=== PATIENT | male | born 1965 | race Caucasian/White ===

== ENCOUNTER 2025-04-23 02:01 | Day surgery (SDC) | payer BC, SELFPAY ==
[2025-04-22 17:15] VITALS: BP 168/94
[2025-04-22 17:33] LABS: Hematocrit 46.0 % (39.0-52.0); Hemoglobin 16.4 g/dL (13.0-18.0); Mean Corp Hgb Conc. 35.7 g/dL (33.0-37.0); Mean Corpuscular Volume 80.6 fL (80.0-94.0); Nucleated Red Blood Cells % 0 % (-); Platelet Count 230 10^3/uL (130-400); Red Cell Dist. Width 12.1 % (11.5-14.5)
[2025-04-22 18:03] LABS: ALT (SGPT) 147 U/L (0-50); AST (SGOT) 86 U/L (17-59); Albumin 4.7 g/dl (3.5-5.0); Alkaline Phosphatase 120 U/L (38-126); Blood Urea Nitrogen 11 mg/dl (9-20); Calcium 9.4 mg/dl (8.4-10.2); Carbon Dioxide 25 mmol/L (22-30); Chloride 97 mmol/L (98-107); Glucose 117 mg/dl (70-99); Lipase 97 U/L (23-300); Potassium 3.7 mmol/L (3.5-5.1); Sodium 133 mmol/L (135-145); Total Protein 7.7 g/dl (6.3-8.2); eGFR > 60.00
[2025-04-22 19:04] VITALS: BP 176/92
[2025-04-22 19:11] VITALS: BMI 19.8
--- NOTE | 2025-04-22 19:31 | ED.GENMED ---
History of Present Illness
General
Chief Complaint: Abdominal Pain
Source: patient
Exam Limitations: none
Time Seen by Provider: 04/22/25 19:24
Nursing documentation reviewed up to this point in time: agreed with
History of Present Illness
History of Present Illness:
59 yo male with h/o HLD, presents with abdominal pain and nausea. Approximately two months ago, the patient experienced what they believe to be food poisoning after eating a salad, resulting in severe vomiting. A recurrence happened two weeks later
after eating salad with similar symptoms. Three days ago, the patient again experienced severe nausea and abdominal pain, reporting multiple episodes of vomiting throughout the night. The pain was rated as 9 out of 10 in severity on that day. The
patient noted exhaustion the following day, Monday, but symptoms were manageable. On presentation today, the abdominal pain has intensified to a 9 out of 10 severity, with nausea but no vomiting. There are no associated fevers. The patient reports
urinating and having bowel movements regularly, with a couple of small hard bowel movements today. There has been no change in the color of the stools. The patient took Colace earlier in the day.
Past History
Past History
ED Past Medical History: Hypercholesterolemia
ED Past Surgical History: Urological (Prostatectomy)
Social History
Tobacco: Former smoker
Alcohol: None
Personal:
Living: with family
Employment: Employed
Review of Systems
Review of Systems
Allergies reviewed?: Yes
All Other Systems: ROS reviewed and negative except as documented in HPI and ROS
Constitutional: Denies fever
Respiratory: Denies trouble breathing
Cardiac: Denies chest pain
ABD/GI: Reports abdominal pain, nausea and vomiting; Denies diarrhea, bloody stools or black stools
: Denies difficulty voiding
Musculoskeletal: Reports no symptoms
Skin: Reports no symptoms
Neurological: Reports no symptoms
Phy Exam
Physical Exam
Physical Exam:
GENERAL: Moderate distress. A&Ox3.
CONSTITUTIONAL: Afebrile.
EYES: clear, conjunctivae normal
ENMT: moist mucus membranes, Pharynx nl
RESPIRATORY: Regular respirations, nonlabored, lungs clear.
CARDIOVASCULAR: Regular rate and rhythm, no murmurs, no rubs.
GI: Soft, nontender, normal BS
MUSCULOSKELETAL: Moves with ease. Well perfused.
SKIN: Warm, dry, pink
PSYCH: Normal mood and affect. Well kept, interactive and appropriate
NEUROLOGIC: Awake, alert and oriented. No focal neurological deficits
Course
Orders/Labs/Results
Orders:
Orders
04/22/25 17:27
Complete Blood Count/With Diff Urgent
Comprehensive Metabolic Panel Urgent
Lipase Urgent
04/22/25 19:27
Ondansetron Injectable [Zofran] 4 mg .ROUTE .STK-MED ONE
04/22/25 19:28
HYDROmorphone [Dilaudid] 1 mg .ROUTE .STK-MED ONE
04/22/25 19:59
0.9% Sodium Chloride 1000 ml [Nss] 1,000 ml IV BOLUS
HYDROmorphone [Dilaudid] 1 mg IV NOW STA
Ondansetron Injectable [Zofran] 4 mg IV NOW STA
04/22/25 20:05
US Abdomen Complete/Upper Urgent
Comment:
Reason For Exam: RUQ pain
04/22/25 20:08
Urinalysis Reflex To Culture Urgent
Date Specimen was Collected: 04/22/25
Time Specimen was Collected: 20:04
Urine Microscopic Reflex Cult Urgent
04/22/25 20:49
Ketorolac [Toradol] 15 mg IV NOW STA
04/22/25 22:43
Piperacillin/Tazo 3.375 Gram [Zosyn] 3.375 gram in 50 ml IV NOW
Abnormal Lab Results
04/22/25 04/22/25
17:27 20:08
WBC 15.4 H 10^3/uL
(4.8-10.8)
Abs Immat Gran (auto) 0.1 H 10^3/uL
(0-0.05)
Absolute Neuts (auto) 12.4 H 10^3/uL
(1.4-6.5)
Absolute Monos (auto) 1.1 H 10^3/uL
(0.1-0.6)
Neutrophils % 80.3 H %
(42.2-75.2)
Lymphocytes % 11.4 L %
(20.5-51.1)
Sodium 133 L mmol/L
(135-145)
Chloride 97 L mmol/L
(98-107)
Glucose 117 H mg/dl
(70-99)
Total Bilirubin 1.8 H mg/dl
(0.2-1.3)
AST 86 H U/L
(17-59)
ALT 147 H U/L
(0-50)
Urine Ketones 3+ A
(Negative)
Ur Occult Blood Reflex 3+ A
(Negative)
Urine RBC 3-6 A /HPF
(0-2)
Urine Bacteria (Reflex) Few A
(Negative)
Urine Albumin (Reflex) 2+ A
(Neg - Trace)
04/22/25 17:27
04/22/25 17:27
Vital Signs
Initial and Last Documented VS:
Initial Vital Signs
Temp Pulse Resp BP Pulse Ox
98.8 F 85 18 168/94 98
04/22/25 17:15 04/22/25 17:15 04/22/25 17:15 04/22/25 17:15 04/22/25 17:15
Last Documented Vital Signs
Temp Pulse Resp BP Pulse Ox
98.8 F 88 19 133/88 96
04/22/25 17:15 04/22/25 23:00 04/22/25 23:00 04/22/25 23:00 04/22/25 23:00
MDM/Problems Addressed
Differential Diagnosis Includes:
1. Gastroenteritis
2. Peptic ulcer disease
3. Cholecystitis
4. Pancreatitis
5. Appendicitis
6. Biliary colic
7. Small bowel obstruction
8. Nephrolithiasis
9. Gastroesophageal reflux disease
10. Diverticulitis
MDM/Problems Addressed:
59 yo male with h/o HLD, presents with abdominal pain and nausea. Approximately two months ago, the patient experienced what they believe to be food poisoning after eating a salad, resulting in severe vomiting. A recurrence happened two weeks later
after eating salad with similar symptoms. Three days ago, the patient again experienced severe nausea and abdominal pain, reporting multiple episodes of vomiting throughout the night. The pain was rated as 9 out of 10 in severity on that day. The
patient noted exhaustion the following day, Monday, but symptoms were manageable. On presentation today, the abdominal pain has intensified to a 9 out of 10 severity, with nausea but no vomiting. There are no associated fevers. The patient reports
urinating and having bowel movements regularly, with a couple of small hard bowel movements today. There has been no change in the color of the stools. The patient took Colace earlier in the day.
Afebrile, moderate distress due to right upper abdominal pain
8:10 PM: After pain medicine patient states pain is down to a 6
CBC: WBC 15.4 with a shift
CMP: Mild elevation of liver enzymes and bilirubin
Lipase normal
8:45 p.m
Requesting something more for pain
Toradol ordere
10:30 p.m.
US radiology report read: IMPRESSION:
Hydropic gallbladder with sludge and stones as well as wall thickening/edema. Likely reflecting acute cholecystitis. De La Rosa's sign is equivocal as the patient has received pain medication. No bile duct dilatation.
Centrilobular echogenic pattern of the normal sized liver, as described. Although likely normal appearance in a patient of this age, recommend correlation with liver function tests.
Discussed results and plan with pt and .
Dr. Ruiz consulted, request antibiotics, NPO p midnight, admit to House Provider, OR tomorrow.
Much better pain relief with Toradol, pain now 11/04
House provider notified of admission
*Pulse Oximetry
SaO2: 100
Oxygen Mode of Delivery: Room air
Patient hypoxic: not evaluated
*Critical Care Note
Total Time (30-74mins, 75-104mins- exclusive of procedures): Not Applicable
ED Attending Note
-
Portions of this chart may have been created with voice recognition software.� Occasional wrong word or��sound alike� substitutions may have occurred due to the inherent limitations of voice recognition software.
Discharge Plan
Departure
Patient Disposition: Admit
Date of Disposition: 04/22/25
Time of Disposition: 22:39
Admit to: Med/Surg
Presentation/result/management discussed w/ accepting /: Joseph
Condition: Good
Discharge Problem:
Acute cholecystitis
Referrals:
Sin Reinoso DO [Family Provider, Internal Medicine]
Interventions
Interventions:
*Risk Screen - Suicide Last Done: 04/22/25 17:19
*General Assessment Last Done: 04/22/25 19:12
*Neglect/Abuse Screening Last Done: 04/22/25 17:19
*ED- Fall Risk Assessment Last Done: 04/22/25 19:12
*ED COVID-19 Vaccine History Last Done: 04/22/25 19:12
AT-Qmgbkj-Vnoordngis Assessment Last Done: 04/22/25 19:12
Discharge Date and Time
Print Language: YI
[2025-04-22] MEDS: NSS 1000 IV (19:45)
[2025-04-22] MEDS: ZOFRAN 4 MG IV (19:48)
[2025-04-22] MEDS: DILAUDID 1 MG IV (19:49)
[2025-04-22 20:17] LABS: Urine Character Clear (Clear)
[2025-04-22 20:23] LABS: Urine Squamous Cell 0-2 /LPF (Few)
[2025-04-22 20:24] LABS: Urine White Cell 0-2 /HPF (0-5)
[2025-04-22] MEDS: TORADOL 15 MG IV (20:55)
[2025-04-22 23:00] VITALS: BP 133/88
[2025-04-22] MEDS: ZOSYN 50 IV (23:02)
[2025-04-23] VITALS (8 sets, daily range): BP systolic 119–188; BP diastolic 69–99; BMI 19.8
--- NOTE | 2025-04-23 01:51 | HPS.HSE ---
Addendum entered and electronically signed by Chance Ruiz MD 04/23/25 10:35:
I saw and examined the patient.
The Van Helper's note was reviewed and I agree with the note.
Comment: 3 day hx of abdomianl pain, localized to RUQ, progressive and severe, a/w n/v. Denies changes to stool/urine. Denies fever/chills. ttp on exam to RUQ. Leukocytosis noted. LFTs elevated. US with stones and sludge, + GBWT. OCTOR for lap vs
robo CCY with cholangogram. IV abx.
Original Note:
Family Physician
-
Family Physician: Sin Reinoso
Chief Complaint
-
Abdominal pain
History of Present Illness
Patient is a 59 yo male with past medical history significant for HLD and prostate cancer (per patient, prostatectomy at [facility] 05/22/2024), presents to the emergency department with abdominal pain and nausea. Three days ago (Monday), the patient
experienced severe nausea and abdominal pain rated at 9 out of 10, reporting multiple episodes of vomiting throughout the night, thought symptoms were from food poisoning. The patient noted exhaustion the following day, Monday, but symptoms were
manageable. On presentation today, the abdominal pain has intensified to a 9 out of 10 severity, with nausea but no vomiting. There are no associated fevers. The patient reports urinating and having bowel movements regularly, with a couple of small
hard bowel movements today. There has been no change in the color of the stools.The patient denies any diarrhea, chest pain, or recent contact with sick individuals.
In the emergency department labs: WBC elevated at 15.4, Mild elevation of Total bilirubin 1.8, AST 86, and ALT 147. Vital signs stable, afebrile.
Abdominal U/S showed: Hydropic gallbladder with sludge and stones as well as wall thickening/edema. Likely reflecting acute cholecystitis. De La Rosa's sign is equivocal as the patient has received pain medication. No bile duct dilatation.
Patient received: Dilaudid, Toradol, Zofran, NSS 1L Bolus and IV antibiotics, Zosyn 3.375 g IV x 1 dose in the emergency department.
ED provider TINY Sky reviewed with General Surgery, Dr. Ruiz, who is accepting the patient to his service. Plan: NPO at midnight, IV antibiotics, IV fluids, pain management, and antiemetics.
Medical History
Past Medical History
Past Medical History: Reports Cancer (Prostate cancer, 2023) and Hypercholesterolemia
Past Surgical History: Reports Urological (Prostatectomy, 04/2024 @ [facility])
Social History
Tobacco: Former Smoker (Quit 2005)
Alcohol: None
Drug: None
Personal:
Living: With Family
Family History
Family History: Not pertinent
Allergies / Home Medications
Allergy/Medication List:
Patient Allergies
Allergy/AdvReac Type Severity Reaction Status Date / Time
No Known Allergies Allergy Verified 04/22/25 17:18
Home Medications
�Medication �Instructions �Recorded
atorvastatin 20 mg tablet 20 mg PO DAILY 04/23/25
Review of Systems
-
History Source: Patient
A 12 point ROS was completed and negative except as noted: Yes
Constitutional: Reports Fatigue
EENT: Reports No Symptoms
Respiratory: Reports No Symptoms
Cardiac: Reports No Symptoms
Abdomen/GI: Reports Abdominal Pain and Nausea; Denies Diarrhea, Bloody Stools or Black Stools
: Reports No Symptoms
Musculoskeletal: Reports No Symptoms
Skin: Reports No Symptoms
Neurological: Reports No Symptoms
Endocrine: Reports No Symptoms
Psych: Reports No Symptoms
Physical Exam
Vital Signs
Vital Signs
Temp Pulse Resp BP Pulse Ox
98.8 F 78 17 141/89 94
04/22/25 17:15 04/23/25 00:30 04/23/25 00:30 04/23/25 00:00 04/23/25 00:30
Physical Exam
General: Well Nourished, Comfortable, Pain (Right lower quadrant abdominal pain, rated at 2 out of 10) and Poor Appetite
HEENT: NormoCephalic, Moist mucous membranes and PERRLA
Respiratory: Clear and Non Labored Respirations
Cardiac: S1/S2 and Regular Rhythm; No Peripheral Edema
GI: Tender (Abdomen right lower quadrant )
Musculoskeletal: No Edema
Skin: Warm and Dry; No Rash or Jaundice
Neuro: Awake, Alert, Oriented and Cranial Nerves Intact; No No Motor Deficits
Psych: Calm and Intact Judgment/Insight
Laboratory Results
-
04/22/25 17:27
04/22/25 17:27
Laboratory Results
Total Bilirubin 1.8 mg/dl (0.2-1.3) H 04/22/25 17:27
AST 86 U/L (17-59) H 04/22/25 17:27
ALT 147 U/L (0-50) H 04/22/25 17:27
Alkaline Phosphatase 120 U/L (38-126) 04/22/25 17:27
Lipase 97 U/L (23-300) 04/22/25 17:27
Data Reviewed
-
Ultrasound: Report Reviewed by me
Lab Data: Labs Reviewed by me
Impression/Plan
-
IMPRESSION:
Patient is a 59 yo male with past medical history significant for HLD and prostate cancer (per patient, prostatectomy at [facility] 05/22/2024), presents to the emergency department with abdominal pain and nausea.
PLAN:
Acute cholecystitis
-Admit to General Surgery, Med Surg under the service of Dr. Ruiz
-Abdomen U/S showed: Hydropic gallbladder with sludge and stones as well as wall thickening/edema. Likely reflecting acute cholecystitis. De La Rosa's sign is equivocal as the patient has received pain medication. No bile duct dilatation.
-NPO until seen by surgery, IV fluids NSS @ 75 mls/hr
-IV antibiotics: Continued Zosyn 3.375 mg Q6H.
-Pain medication: Toradol, Dilaudid
-Antiemetics: Zofran
HLD
-Continue home medications: Atorvastatin 20 mg PO daily
DVT prophylaxis: SCD's
Code status: Full code
[2025-04-23] MEDS: ZOFRAN 4 MG IV ×3 (02:33→18:31)
[2025-04-23] MEDS: TORADOL 10 MG IV ×3 (02:33→21:50)
[2025-04-23] MEDS: NSS 1000 IV ×2 (03:57→22:20)
[2025-04-23] MEDS: ZOSYN 50 IV ×4 (03:58→21:27)
--- NOTE | 2025-04-23 05:08 | TRANSFER ---
Pt transferred to 3W from ED. Pt ambulated from stretcher to hospital bed. Vitals BP 126/82 HR 79 O2 98 on room air T 98.5 R 16. Pt NPO for procedure, oriented to room, call coronado within reach, plan of care ongoing.
[2025-04-23 05:51] LABS: Hematocrit 41.7 % (39.0-52.0); Hemoglobin 14.8 g/dL (13.0-18.0); Mean Corp Hgb Conc. 35.5 g/dL (33.0-37.0); Mean Corpuscular Volume 81.4 fL (80.0-94.0); Platelet Count 191 10^3/uL (130-400); Red Cell Dist. Width 12.0 % (11.5-14.5)
[2025-04-23 06:06] LABS: Blood Urea Nitrogen 11 mg/dl (9-20); Calcium 8.4 mg/dl (8.4-10.2); Carbon Dioxide 25 mmol/L (22-30); Chloride 102 mmol/L (98-107); Estimated Creatinine Clearance 78 ml/min; Glucose 103 mg/dl (70-99); Potassium 3.7 mmol/L (3.5-5.1); Sodium 136 mmol/L (135-145); eGFR > 60.00
[2025-04-23] MEDS: LIPITOR 20 MG PO (08:02)
[2025-04-23] MEDS: DILAUDID 1 MG IV ×3 (08:04→18:30)
--- NOTE | 2025-04-23 10:09 | CON.GS ---
Addendum entered and electronically signed by Chance Ruiz MD 04/23/25 13:50:
I was physically present and personally performed the english portions of the surgical evaluation and/or procedure with the resident. I discussed the findings, reviewed the resident�s note, and confirmed the medical decision-making. I provided direct
supervision as required and agree with the assessment and plan as documented with the following additions/corrections:
See my addendum to H&P
Original Note:
Consultation
-
Date/Time Consultation Performed: 04/23 8:30AM
Performing Provider: Chance Dooley
Reason for Consultation: USG Abdominal Doppler Scan- Acute cholecystitis
Medical History
-
History of Present Illness:
59 yo male with past medical history significant for HLD and prostate cancer (per patient, prostatectomy at [facility] 05/22/2024), presents to the ER with abdominal pain and nausea. Three days ago (Monday), the patient experienced severe nausea and
abdominal pain rated at 9 out of 10, pain on the right side fo the abdomen reporting multiple episodes of vomiting throughout the night, thought symptoms were from food poisoning. The patient noted exhaustion the following day, Monday, but symptoms
were manageable. While on the admission patient experiences nausea, but no vomiting.
Past Medical History
Past Medical History: Cancer (Prostate cancer), Hypercholesterolemia (hyperlipidemia) and Other
Past Surgical History: Other (Prostatectomy)
Social History
Tobacco: Former Smoker
Alcohol: None
Drug: None
Personal:
Living: With Family
Allergies / Home Medications
Allergy/AdvReac Type Severity Reaction Status Date / Time
No Known Allergies Allergy Verified 04/22/25 17:18
�Medication �Instructions �Recorded �Confirmed �Type
atorvastatin 20 mg tablet 20 mg PO DAILY 04/23/25 04/23/25 History
Review of Systems
-
History Source: Patient
Constitutional: Fatigue
Respiratory: No Symptoms
Cardiac: No Symptoms
Abdomen/GI: Abdominal Pain (right side abdominal pain), Nausea and Vomiting
: No Symptoms
Musculoskeletal: No Symptoms
Skin: No Symptoms
Neurological: No Symptoms
Endocrine: No Symptoms
Hematologic/Lymphatic: No Symptoms
A 10 point review of systems was completed, and was negative except as per HPI.
Physical Exam
Vital Signs
Temp Pulse Resp BP Pulse Ox
98.6 F 81 22 188/99 100
04/23/25 07:45 04/23/25 07:45 04/23/25 07:45 04/23/25 07:45 04/23/25 07:45
04/22/25 04/23/25 04/24/25
06:59 06:59 06:59
Actual Weight 53.977 kg
Body Mass Index (BMI) 19.8
Lab Results
04/23/25 05:11
04/23/25 05:11
WBC 15.3 10^3/uL (4.8-10.8) H 04/23/25 05:11
Hgb 14.8 g/dL (13.0-18.0) 04/23/25 05:11
Hct 41.7 % (39.0-52.0) 04/23/25 05:11
Plt Count 191 10^3/uL (130-400) 04/23/25 05:11
Abs Immat Gran (auto) 0.1 10^3/uL (0-0.05) H 04/22/25 17:27
Neutrophils % 80.3 % (42.2-75.2) H 04/22/25 17:27
Physical Exam
General: Well Nourished
HEENT: Moist Mucous Membranes
Respiratory: Clear
Cardiac: S1/S2
GI: Non Distended, Tender and Incisions (above umbilicus- incision scar prevent from previous surgery )
Skin: Warm
Neuro: AO x 3
Hematologic/Lymphatic: No Lymphadenopathy
Assessment / Plan
-
59 yrs old male with k/h/o hyperlipidemia, prostate cancer ([prostatectomy done on 2023 at [facility]) arrived with abdominal pain
# Abdominal pain secondary to Acute Cholecystitis:
-WBC elevated at 15.4---> 15.3
-LFT:
Total bilirubin 1.8(H)
AST 86 (H)
ALT 147(H)
Abdominal U/S Impression:
Hydropic gallbladder with sludge and stones as well as wall thickening/edema.
Likely reflecting acute cholecystitis.
De La Rosa's sign is equivocal as the patient has received pain medication.
No bile duct dilatation.
Centrilobular echogenic pattern of the normal sized liver
PREOP PLAN:
- NPO
- Continue IV Fluids
- Patient is on Piperacillin/ Tazobactam - 3.375gm (DAY-1)
- Continue the pain medications includes Hydromorphone HCl, Ketorolac
- Zosyn for the nausea PRN.
DVT prophylaxis: Lovenox 40 sc
--- NOTE | 2025-04-23 11:53 | CM ---
Patient seen at bedside
OBS status - OBS form explained & signed. In chart
IA completed
Lives with in 1 story home, [address]
PLOF: Independent
Denies DME
Denies VN/Rehab
PCP: Sin Reinoso
Pharmacy: [facility], [facility]
PLAN: Home, no needs anticipated, CM to continue to follow
[2025-04-23] MEDS: LOVENOX 40 MG SC (18:24)
[2025-04-24] VITALS (12 sets, daily range): BP systolic 91–144; BP diastolic 56–85; BMI 20.1
[2025-04-24] MEDS: DILAUDID 0.5 MG IV (02:46)
[2025-04-24] MEDS: ZOFRAN 4 MG IV ×2 (02:48→12:22)
[2025-04-24] MEDS: ZOSYN 50 IV ×3 (03:52→22:51)
[2025-04-24] MEDS: TORADOL 10 MG IV ×2 (04:20→20:34)
--- NOTE | 2025-04-24 08:29 | W.PN.SURGUPD ---
Surgical Update
Surgical Update
Patient seen and examined in preoperative holding area. History reviewed with patient. Persistent right upper quadrant pain consistent with acute calculus cholecystitis. Persistent tenderness on examination this a.m. Reviewed with patient
indications for cholecystectomy which she is in agreement to proceed with.
Laparoscopic cholecystectomy with intraoperative cholangiogram was reviewed in detail with the patient including the anticipated operative technique, alternative treatment options, benefits and potential risk such as but not limited to bleeding,
infectious and wound related complications, iatrogenic injury to surrounding viscera, postcholecystectomy fatty food bowel changes. Any of the patient's concerns or questions were fully addressed and written informed consent was obtained.
--- NOTE | 2025-04-24 08:31 | W.SUR.PREOP ---
Pre-Operative Surgical Note
-
I have examined this patient prior to the performance of the scheduled procedure.
The patient's condition is unchanged from the time of the current History and
Physical and the patient is able to undergo the scheduled procedure.
--- NOTE | 2025-04-24 09:23 | CM ---
Pt off unit for lap cholecystectomy this AM.
CM to follow up post-op; anticipate pt will return home with no needs at discharge.
--- NOTE | 2025-04-24 10:14 | W.IMMPOSTOP ---
Addendum entered and electronically signed by Franky Dominique MD 04/24/25 10:26:
#[id number]
Original Note:
Surgical Immed Post Op Note
-
Primary Surgeon: Franky Dominique MD
Assisting Surgeon: Judy Patterson PA-C
Pre-op Diagnosis: Acute calculus cholecystitis
Post-op Diagnosis: Acute calculus cholecystitis
Procedure Performed: Laparoscopic cholecystectomy with cholangiogram
Anesthesia Type: GETA +0.25% Marcaine with epi
Specimen / Cultures: Gallbladder
Estimated Blood Loss: 20 mL
Complications: None immediate
Operative Findings: Tensely distended gallbladder surrounded an acute inflammatory peel and fibrinous exudate. Cyst needle decompression. Main cystic artery and posterior branch individually identified and controlled with clips. Intraoperative
cholangiogram normal. Cystic duct stump controlled with 0 PDS Endoloop. There was entrance of the the gallbladder lining during the dissection but no spillage of stones. Gallbladder removed at the epigastric 12 mm trocar site which had to be
enlarged to accommodate the thickened and enlarged gallbladder.
Plan: Routine postoperative care with dietary advancement today.
Continue Zosyn for 24 hours
Repeat laboratory testing tomorrow a.m. with subsequent probable DC home
Left voicemail message for patient's postoperatively
[2025-04-24] MEDS: ZOSYN IV (11:31)
--- NOTE | 2025-04-24 15:40 | PTCARENOTE ---
received pt back from PACU/OR for lap tressa. Surgery proceeded w/o issue, pt resting comfortably. VSS stable, call coronado within reach, bed in lowest position, pt reports tolerable pain level, follow plan of care.
--- NOTE | 2025-04-24 15:42 | PTCARENOTE ---
late entry on prior note, pt returned to floor approx 11:15
[2025-04-24] MEDS: NSS 1000 IV (22:39)
[2025-04-24] MEDS: LOVENOX 40 MG SC (22:40)
[2025-04-24] MEDS: NSS IV (22:51)
[2025-04-25 03:30] VITALS: BP 115/64
[2025-04-25] MEDS: ZOSYN 50 IV ×2 (03:57→09:56)
[2025-04-25 04:03] VITALS: BP 115/64
[2025-04-25] MEDS: TORADOL 10 MG IV (04:09)
[2025-04-25 05:49] LABS: Hematocrit 33.1 % (39.0-52.0); Hemoglobin 11.5 g/dL (13.0-18.0); Mean Corp Hgb Conc. 34.7 g/dL (33.0-37.0); Mean Corpuscular Volume 82.3 fL (80.0-94.0); Platelet Count 157 10^3/uL (130-400); Red Cell Dist. Width 12.3 % (11.5-14.5)
[2025-04-25 06:25] LABS: ALT (SGPT) 119 U/L (0-50); AST (SGOT) 74 U/L (17-59); Albumin 3.1 g/dl (3.5-5.0); Alkaline Phosphatase 103 U/L (38-126); Blood Urea Nitrogen 13 mg/dl (9-20); Calcium 8.0 mg/dl (8.4-10.2); Carbon Dioxide 27 mmol/L (22-30); Chloride 102 mmol/L (98-107); Estimated Creatinine Clearance 79 ml/min; Glucose 138 mg/dl (70-99); Potassium 4.0 mmol/L (3.5-5.1); Sodium 134 mmol/L (135-145); Total Protein 5.5 g/dl (6.3-8.2); eGFR > 60.00
[2025-04-25 07:42] VITALS: BP 121/75
--- NOTE | 2025-04-25 09:01 | W.PN.GS2 ---
Addendum entered and electronically signed by Franky Dominique MD 04/25/25 11:13:
Patient seen and examined with surgical FIRMWARE ENGINEER. Agree with documented progress note.
Patient feels well postoperatively. Minimal incisional discomfort. No pain.
Tolerated regular diet overnight.
No nausea, no vomiting, no exacerbation of abdominal pain. Feels well and ready for discharge
AFVSS
NAD AAO x 3
ABD: Soft, nondistended, essentially nontender other than minimal at incision sites. Incisions with glue dressings
A/P: POD #1 status post lap tressa with intraoperative cholangiogram negative for choledocholithiasis
LFTs mildly elevated today which likely is a lag behind with surgery yesterday rather than reflective of biliary obstruction or retained gallstone given normal cholangiogram.
Advised patient of lab testing results.
His strong preference is for discharge with outpatient surgical follow-up which is certainly reasonable given clinical stability.
Counseled regarding signs or symptoms which should prompt notification of myself and/or immediate medical attention
DC instructions reviewed
Original Note:
Today's Communication / Plan
-
dispo planning
Assessment / Plan
-
59 yo male who presented with acute cholecystitis now POD #1 lap tressa, IOC without choledocholithiasis
AFVSS
Leukocytosis resolved
Bilirubin mildly elevated today, likely reactive
Minimal pain, tolerating diet
Plan;
Low fat diet
Analgesics prn
Dispo planning
Subjective Data
-
Date of Service: April 25, 2025
Pt seen and examined at bedside. Denies n/v. Minimal discomfort at incisions. Hungry this am.
Objective Data
-
Intake and Output
04/24/25 04/25/25 04/26/25
06:59 06:59 06:59
Intake Total 960 / 960 1060 / 1060
Output Total 1050 / 1050 1100 / 1100
Balance -90 / -90 -40 / -40
Intake:
Oral fluids 960 / 960 960 / 960
IV fluids (Total) 100 / 100
normosol 100 / 100
Output:
Urine, Voided 0 / 1050 1100 / 1100
Other:
Number of approximated MODERATE 1
amounts of urine
Vital Signs
Temp Pulse Resp BP Pulse Ox
98.0 F 63 17 121/75 98
04/25/25 07:42 04/25/25 07:42 04/25/25 07:42 04/25/25 07:42 04/25/25 07:42
Lab Results
04/25/25 05:03
04/25/25 05:03
Calcium 8.0 mg/dl (8.4-10.2) L 04/25/25 05:03
Total Bilirubin 3.0 mg/dl (0.2-1.3) H D 04/25/25 05:03
AST 74 U/L (17-59) H 04/25/25 05:03
ALT 119 U/L (0-50) H 04/25/25 05:03
Alkaline Phosphatase 103 U/L (38-126) 04/25/25 05:03
Total Protein 5.5 g/dl (6.3-8.2) L D 04/25/25 05:03
Albumin 3.1 g/dl (3.5-5.0) L D 04/25/25 05:03
Physical Exam
-
NAD
ABD soft, nd, nt
Incisions well approximated, intact glue
[2025-04-25] MEDS: NSS IV (09:53)
--- NOTE | 2025-04-25 10:12 | CM ---
CM spoke with Cam to complete IA. He lives with his in a ranch style home with 2 entry steps. Cam is (I) amb and adls, no DME or prior VN/SNF/Rehab.
Plan: Discharge to home with no identified needs. available to assist as needed.
PCP: Sin Reinoso
Pharmacy: [facility]
[2025-04-25 11:45] VITALS: BP 108/65
== END 2025-04-25 11:41 | disposition home or self-care (01) ==
LOC: SDS 02:01
PROVIDERS: Emergency Medicine; Nurse Practitioner Family; Registered Nurse; ATTENDING PHYSICIAN Surgery; EMERGENCY PHYSICIAN Emergency Medicine; FAMILY PHYSICIAN Internal Medicine
DX: K80.00 Calculus of gallbladder with acute cholecystitis without obstruction (principal)
CPT/HCPCS: 47563; 74300; 76000; 76700; 80048; 80053; 81003; 81015; 83690; 85025; 85027; 88304; 93005; 96361; 96365; 96375; 99285; A4300